=== PATIENT | female | born 1940 | race Caucasian/White ===

== ENCOUNTER 2016-09-24 08:15 | Outpatient (RCR) | payer MEDICARE, OTHER | END 2016-10-01 12:00 | disposition home or self-care (01) | LOC: PT 08:15 | PROVIDERS: ATTEND Family Medicine | DX: M54.2 Cervicalgia (principal); M54.12 Radiculopathy, cervical region | CPT/HCPCS: 97001; 97012; 97035; 97110; 97112; 97140; G0283; G8984; G8985; G8986; 97014 ==